=== PATIENT | female | born 1960 | race Hispanic/Latino ===

== ENCOUNTER 2025-02-23 23:54 | Inpatient (IN) | payer MEDICAID ==
--- OUTSIDE RECORDS SUMMARY | 2025-02-23 23:59 | XMS REPORT | Continuity of Care Document ---
Author Name Unknown Address [address] [facility] [place] [address] [facility] Address [address] 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 Name Role Phone Rosa Womack MD Primary Care Physician ENMANUEL PARKS Attending Clinician Unavailable SIMRAN ESPINO Attending Clinician Unavailable LARS, MC Attending Clinician Unavailable CLAUDIA TENA Attending Clinician UnavailGENEVIEVE Humphreys Attending Clinician Unavailable ANNMARIETAAMIR Attending Clinician Unavailable SERA BAEZ Attending Clinician Unavailable LAB47 Attending Clinician Unavailable THEODORE APPLE Attending Clinician Unavailable KAVITHA TAVERAS Attending Clinician Unavailable LAB90 Attending Clinician Unavailable MACKENZIE SARGENT Attending Clinician Unavail able RYAN MENJIVAR Attending Clinician Unava ilable CARLTON ELENA Attending Clinician Unavailable ROSA WOMACK Attending Clinician Unava ilable JONES, SUE S Attending Clinician Unavailab MATEO Zuniga Attending Clinician Unavaila Simran Dang DO Attending Clinician [phone] Enmanuel Parks DO Attending Clinician [phone] TOMOGRAPHY, TA OPTICAL COHERENCE Attending Clini zander Unavailable Violet PATEL, Rosalino Diez Attending Clinician [phone] CONFERENCE, BDC Attending Clinician Unavailable Mateo Linn MD Attending Clinician + [phone] KRUPA INTERIANO Attending Clinician Unavailable Mackenzie Sargent MD Attending Clinician [phone] Vu PATEL, Rosa Berumen Attending Clinician +[phone] Dottie Pizano Attending Clinician Unavail able Dottie Pizano Admitting Clinician Unavail able Payers Payer Name Policy Type Policy Number Effective Date Expirati on Date Source KCA SIGNATURE O 7 [id number] 2024 00:00:00 [employer] MP [facility] [employer] 87 ON 9 [id number] 2023 00:00:00 Problems Condition Name Condition Details Condition Category Status Onset Date Resolution Date Last Treatment Date Treating Clinician Comments Source Sy Dan Disease Active 2023-11 00:00: 00 Nuris Seybold - Externa l Well adult exam Well adult exam Disease Active 2023-11 00:00: 00 Nuris Seybold - Externa l PVD (periphera l vascular disease) PVD (periphera l vascular disease) Disease Active 2023-11 00:00: 00 Nuris Seybold - Externa l 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 ([facility]HS-HCC) 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 ([facility]HS-HCC) Disease Active 12-13 00:00: 00 Nuris Seybold - Externa l Dermatitis Dermatitis Disease Active 12-13 00:00: 00 Nuris Seybold - Externa l Stress Stress Disease Active 2021-11 00:00: 00 Nuris Seybold - Externa l Primary insomnia Primary insomnia Disease Active 2022-1 0-14 00:00: 00 Nuris Jurado - Radhaa l Snoring Snoring Disease Active 9-09 00:00: 00 Nuris Jurado - Externa l Osteoporos is Osteoporos is Disease Active 8-15 00:00: 00 Nuris Jurado - Externa l 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 (multi HCC) 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 (multi HCC) Disease Active 3- 00:00: 00 Nuris Jurado - Radhaa l Rheumatoid arthritis Rheumatoid arthritis Disease Active 1- 00:00: 00 Nuris Jurado No known active problems No known active problems Disease Nuris Jurado Social History Social Habit Start Date Stop Date Quantity Comments Source Gender identity Helene Jurado - External Sexual orientation Chary tapiageoff Jurado - External ASSERTION Not Nuris Jurado - External History of Occupation Nuris Jurado - External Exposure to SARS-CoV-2 (event) Not sure Nuris urena Alcoholic beverage intake 2025-01-01 00:00:00 2025-01-01 00:00:00 Ex-drinker (finding) Nuris Jurado - External History of Social function 2024-09-25 00:00:00 2024-09-25 00:00:00 Nuris Jurado - External Education 2024-09-25 00:00:00 2024-09-25 00:00:00 13 Nuris Jurado - External Tobacco use and exposure 2023-03-20 00:00:00 2023-03-20 00:00:00 Smokeless tobacco non-user Nuris Jurado - External Sex 2021-11-11 09:07:11 2021-11-11 09:07:11 Female (finding) Nuris Jurado - External Sex assigned at 1960 00:00:00 1960 00:00:00 Nuris Jurado - External Smoking Status Start Date Stop Date Source Never smoked tobacco Nuris Jurado - External Medications Ordered Medication Name Filled Medication Name Start Date Stop Date Current Medication? Ordering Clinician Indication Dosage Frequency Signature (SIG) Comments Components Source Zoledronic Acid (RECLAST) 5 MG/100ML infusion 5 mg Zoledronic Acid (RECLAST) 5 MG/100ML infusion 5 mg 01-10 09:12: 13 Yes [id number] 5mg 5 mg, at 300 mL/hr, Administer over 20 Minutes, intravenou s, ONCE, On Mon01/10/25 at 0815, For 1 dose, CORRECTED CALCIUM NEEDS TO BE >= 8 TO BE GIVEN (call MD if sudden drop or Corrected Calcium less than 8) Nuris lao Acetaminoph en (TYLENOL) tablet 650 mg Acetaminoph en (TYLENOL) tablet 650 mg 01-10 09:11: 14 Yes [id number] 650mg 650 mg, oral, ONCE, On Mon01/10/25 at 0815, For 1 dose, Give post-infus ion of Reclast. Maximum dose of acetaminop hen is 4000 mg from all sources in 24 hours. Nuris lao Denosumab (Prolia) 60 MG/ML subcutaneou s Solution Prefilled Syringe 12-16 10:53: 49 Yes [id number] 60mg Inject 1 mL (60 mg total) into the skin every 6 (six) months. Indication s: Osteoporos is Nuris Garciaa l Calcium Carbonate-V it D-Min (CALCIUM 1200 OR) 12-16 10:53: 34 Yes 1{tbl} QD Take 1 tablet by mouth daily Nuris lao Denosumab (Prolia) 60 MG/ML subcutaneou s Solution Prefilled Syringe 2023-11 09:49: 47 Yes [id number] 60mg Inject 1 mL (60 mg total) into the skin every 6 (six) months. Indication s: Osteoporos is Nuris Jurado - Radhaa l Calcium Carbonate-V it D-Min (CALCIUM 1200 OR) 2023-11 09:12: 36 Yes 1{tbl} QD Take 1 tablet by mouth daily Nuris Garciaa l Calcium Carbonate-V it D-Min (CALCIUM 1200 OR) 2023-11 09:41: 03 Yes 1{tbl} QD Take 1 tablet by mouth daily Nuris lao Diclofenac Sodium (Voltaren) 1 % apply externally Gel 2023-11 00:00: 09-25 00:00 :00 No [id number] 4g QD Apply 4 g topically daily Apply 4 grams daily. Nuris lao Denosumab (PROLIA) injection 60 mg 06-24 10:58: 14 No [id number] 60mg 60 mg, subcutaneo us, ONCE, On Mon06/24/24 at 1100, For 1 dose, RN please ensure patient is taking oral calcium and Vitamin D as recommende d by MD. Typically 500-1000 mg calcium and at least 400 IU Vitamin D daily. CORRECTED CALCIUM NEEDS TO BE >= 8 TO BE GIVEN (call MD if sudden drop or Corrected Calcium less than 8) Nuris lao Calcium Carbonate-V it D-Min (CALCIUM 1200 OR) 06-06 14:52: 04 Yes 1{tbl} QD Take 1 tablet by mouth daily Nuris lao Triamcinolo ne Acetonide 0.1 % apply externally Cream 06-06 00:00: 00 09-25 00:00 :00 No [id number] 1{appli cation} Q.5D Apply 1 Applicatio n topically 2 times daily. Nuris lao Cetirizine HCl (ZyrTEC Allergy) 10 MG oral Capsule 06-06 00:00: 00 08-23 00:00 :00 No [id number] 10mg QD Take 1 capsule (10 mg total) by mouth daily as needed (itching). Nuris lao Calcium Carbonate-V it D-Min (CALCIUM 1200 OR) 06-04 13:44: 17 Yes 1{tbl} QD Take 1 tablet by mouth daily Nuris lao Denosumab (PROLIA) injection 60 mg 12-25 13:45: 00 12-25 14:03 :00 No [id number] 60mg 60 mg, subcutaneo us, ONCE, On Mon12/25/23 at 0745, For 1 dose, RN please ensure patient is taking oral calcium and Vitamin D as recommende d by . Typically 500-1000 mg calcium and at least 400 IU Vitamin D daily. CORRECTED CALCIUM NEEDS TO BE >= 8 TO BE GIVEN (call MD if sudden drop or Corrected Calcium less than 8) Nuris lao Calcium Carbonate-V it D-Min (CALCIUM 1200 OR) 11-28 13:21: 56 Yes 1{tbl} Take 1 tablet by mouth daily Nuris lao Eszopiclone 2 MG oral Tablet - 00:00: 00 06-06 00:00 :00 No [id number] 2mg QD Take 1 tablet (2 mg total) by mouth nightly Take immediatel y before bedtime. Nuris lao Calcium Carbonate-V it D-Min (CALCIUM 1200 OR) 05-23 13:58: 03 Yes 1{tbl} Take 1 tablet by mouth daily Nuris lao Eszopiclone 2 MG oral Tablet 05-23 00:00: 00 Yes [id number] 2mg Take 1 tablet (2 mg total) by mouth nightly Take immediatel y before bedtime Nuris lao Denosumab (PROLIA) injection 60 mg 04-12 13:00: 00 04-12 12:50 :00 No [id number] 60mg 60 mg, subcutaneo us, ONCE, On Mon04/12/23 at 0800, For 1 dose
RN please ensure patient is taking oral calcium and Vitamin D as recommende d by MD. Typically 500-1000 mg calcium and 400 IU Vitamin D daily.&nbs p;CORRECTE D CALCIUM NEEDS TO BE >= 8 TO BE GIVEN (call MD if sudden drop or Corrected Calcium less than 8)
Nuris lao Calcium Carbonate-V it D-Min (CALCIUM 1200 OR) 03-20 13:47: 52 Yes 1{tbl} Take 1 tablet by mouth daily Nuris lao Eszopiclone 2 MG oral Tablet 03-20 00:00: 00 Yes [id number] 2mg Take 1 tablet (2 mg total) by mouth nightly Take immediatel y before bedtime Nuris lao Calcium Carbonate-V it D-Min (CALCIUM 1200 OR) 3-14 14:03: 00 Yes 1{tbl} Take 1 tablet by mouth daily Nuris lao Eszopiclone 2 MG oral Tablet -14 00:00: 00 Yes [id number] 2mg Take 1 tablet (2 mg total) by mouth nightly Take immediatel y before bedtime Nuris lao Leflunomide 20 MG oral Tablet -14 00:00: 00 06-06 00:00 :00 No [id number] 20mg QD Take 1 tablet (20 mg total) by mouth daily Nuris lao Calcium Carbonate-V it D-Min (CALCIUM 1200 OR) 12-13 14:28: 26 Yes 1{tbl} Take 1 tablet by mouth daily Nuris lao Hydrocortis one 1 % apply externally Cream 12-13 00:00: 00 Yes [id number] Q.5D Apply 1 applicatio n topically 2 times daily as needed Nuris Man l Hydrocortis one 1 % apply externally Cream 12-13 00:00: 00 Yes [id number] Q.5D Apply 1 applicatio n topically 2 times daily as needed Nuris Garciaa l Hydrocortis one 1 % apply externally Cream 12-13 00:00: 00 06-06 00:00 :00 No [id number] Q.5D Apply 1 applicatio n topically 2 times daily as needed Nuris lao Eszopiclone 2 MG oral Tablet 11-14 00:00: 00 Yes [id number] 2mg Take 1 tablet (2 mg total) by mouth nightly Take immediatel y before bedtime Nuris lao Denosumab (PROLIA) injection 60 mg 2021-11 20:45: 00 10-07 20:33 :00 No [id number] 60mg 60 mg, subcutaneo us, ONCE, On Mon10/07/22 at 1445, For 1 dose
RN please ensure patient is taking oral calcium and Vitamin D as recommende d by MD. Typically 500-1000 mg calcium and 400 IU Vitamin D daily.&nbs p;CORRECTE D CALCIUM NEEDS TO BE >= 8 TO BE GIVEN (call MD if sudden drop or Corrected Calcium less than 8)
Nuris lao Calcium Carbonate-V it D-Min (CALCIUM 1200 OR) 2021-11 14:59: 11 Yes 1{tbl} Take 1 tablet by mouth daily Nuris lao Calcium Carbonate-V it D-Min (CALCIUM 1200 OR) 2021-11 13:48: 16 Yes 1{tbl} Take 1 tablet by mouth daily Nuris lao predniSONE 5 MG oral Tablet 2021-11 00:00: 00 06-06 00:00 :00 No [id number] Take 1 tab PO daily PRN RA flare Nuris lao Eszopiclone 2 MG oral Tablet 2021-11 00:00: 00 Yes [id number] 2mg Take 1 tablet (2 mg total) by mouth nightly Take immediatel y before bedtime Nuris lao predniSONE 5 MG oral Tablet 01-04 00:00: 00 Yes [id number] 5mg Take 1 tablet (5 mg total) by mouth daily Nuris Jurado Leflunomide 20 MG oral Tablet 01-04 00:00: 00 01-17 00:00 :00 No [id number] 20mg Take 1 tablet (20 mg total) by mouth daily Nuris lao Zolpidem Tartrate 10 MG oral Tablet 11-23 00:00: 00 Yes 10mg Take 10 mg by mouth at bedtime as needed Nuris Jurado predniSONE 5 MG oral Tablet 11-15 00:00: 00 Yes 5mg Take 5 mg by mouth every other day Nuris Jurado Leflunomide 20 MG oral Tablet 11-15 00:00: 00 Yes 20mg Take 20 mg by mouth daily Nuris Jurado Immunizations Ordered Immunization Name Filled Immunization Name Date Status Comments Source Influenza Virus Vaccine, No Preserv, age 6 months and up 2022-07-06 00:00:00 Completed Nuris Seybold - External Influenza Virus Vaccine, No Preserv, age 6 months and up 2022-07-06 00:00:00 Completed Nuris Seybold - External Influenza Virus Vaccine, No Preserv, age 6 months and up 2022-07-06 00:00:00 Completed Nuris Seybold - External Influenza Virus Vaccine, No Preserv, age 6 months and up 2022-07-06 00:00:00 Completed Nuris Seybold - External Influenza Virus Vaccine, No Preserv, age 6 months and up 2022-07-06 00:00:00 Completed Nuris Seybold - External Influenza Virus Vaccine, No Preserv, age 6 months and up 2022-07-06 00:00:00 Completed Nuris Seybold - External Influenza Virus Vaccine, No Preserv, age 6 months and up 2022-07-06 00:00:00 Completed Nuris Seybold - External Influenza Virus Vaccine, No Preserv, age 6 months and up Unknown Completed Nuris Seybold - External Influenza Virus Vaccine, No Preserv, age 6 months and up Unknown Completed Nuris Seybold - External Influenza Virus Vaccine, No Preserv, age 6 months and up Unknown Completed Nuris Seybold - External Influenza Virus Vaccine, No Preserv, age 6 months and up Unknown Completed Nuris Seybold - External Influenza Virus Vaccine, No Preserv, age 6 months and up Unknown Completed Nuris Seybold - External Influenza Virus Vaccine, No Preserv, age 6 months and up Unknown Completed Nuris Seybold - External Influenza Virus Vaccine, No Preserv, age 6 months and up Unknown Completed Nuris Seybold - External Influenza Virus Vaccine, No Preserv, age 6 months and up Unknown Completed Nuris Seybold - External Influenza Virus Vaccine, No Preserv, age 6 months and up Unknown Completed Nuris Seybold - External Influenza Virus Vaccine, No Preserv, age 6 months and up Unknown Completed Nuris Seybold - External Influenza Virus Vaccine, No Preserv, age 6 months and up Unknown Completed Nuris Seybold - External Vital Signs Vital Name Observation Time Observation Value Comments S ource Systolic blood pressure 2025-01-10 14:12:00 148 mm[Hg] Nuris Seybo ld - External Diastolic blood pressure 2025-01-10 14:12:00 79 mm[Hg] Nuris Seybo ld - External Heart rate 2025-01-10 14:12:00 73 /min Kelse y Seybold - External Body temperature 2025-01-10 14:12:00 36.33 Sylvia Nuris Seybold - External Respiratory rate 2025-01-10 14:12:00 20 /min Nuris Seybold - External Body height 2025-01-10 14:12:00 157.5 cm Helene ey Seybold - External Body weight 2025-01-10 14:12:00 51.166 kg Helene ey Seybold - External BMI 2025-01-10 14:12:00 20.63 kg/m2 Helene ey Seybold - External Oxygen saturation in Arterial blood by Pulse oximetry 2025-01-10 14:12:00 99 /min Nuris Robisonybo ld - External Systolic blood pressure 2025-01-01 14:27:00 146 mm[Hg] Nuris Seybo ld - External Diastolic blood pressure 2025-01-01 14:27:00 76 mm[Hg] Nuris Seybo ld - External Heart rate 2025-01-01 14:27:00 86 /min Akilse y Seybold - External Respiratory rate 2025-01-01 14:27:00 18 /min Nuris Seybold - External Body height 2025-01-01 14:27:00 157.5 cm Helene ey Seybold - External Body weight 2025-01-01 14:27:00 53.071 kg Helene ey Seybold - External BMI 2025-01-01 14:27:00 21.40 kg/m2 Helene ey Seybold - External Systolic blood pressure 2024-12-16 16:52:00 132 mm[Hg] Nuris Seybo ld - External Diastolic blood pressure 2024-12-16 16:52:00 82 mm[Hg] Nuris Seybo ld - External Heart rate 2024-12-16 16:52:00 73 /min Akilse y Seybold - External Body temperature 2024-12-16 16:52:00 36.61 Sylvia Nuris Seybold - External Respiratory rate 2024-12-16 16:52:00 16 /min Nuris Seybold - External Body height 2024-12-16 16:52:00 162.6 cm Helene ey Seybold - External Body weight 2024-12-16 16:52:00 52.164 kg Helene ey Seybold - External BMI 2024-12-16 16:52:00 19.74 kg/m2 Helene ey Seybold - External Systolic blood pressure 2024-09-25 15:07:00 110 mm[Hg] Nuris Seybo ld - External Diastolic blood pressure 2024-09-25 15:07:00 64 mm[Hg] Nuris Seybo ld - External Heart rate 2024-09-25 15:07:00 58 /min Kelse y Seybold - External Body temperature 2024-09-25 15:07:00 36.17 Sylvia Nuris Seybold - External Respiratory rate 2024-09-25 15:07:00 18 /min Nuris Seybold - External Body height 2024-09-25 15:07:00 162.6 cm Helene ey Seybold - External Body weight 2024-09-25 15:07:00 52.164 kg Helene ey Seybold - External BMI 2024-09-25 15:07:00 19.74 kg/m2 Helene ey Seybold - External Oxygen saturation in Arterial blood by Pulse oximetry 2024-09-25 15:07:00 90 /min Nuris Seybo ld - External Body height 2024-08-23 14:41:00 161 cm Helene ey Seybold - External Body weight 2024-08-23 14:41:00 52.617 kg Helene ey Seybold - External BMI 2024-08-23 14:41:00 20.30 kg/m2 Helene ey Seybold - External Systolic blood pressure 2024-06-24 15:50:00 136 mm[Hg] Nuris Seybo ld - External Diastolic blood pressure 2024-06-24 15:50:00 79 mm[Hg] Nuris Seybo ld - External Heart rate 2024-06-24 15:50:00 71 /min Kelse y Seybold - External Body temperature 2024-06-24 15:50:00 36.28 Sylvia Nuris Seybold - External Respiratory rate 2024-06-24 15:50:00 18 /min Nuris Seybold - External Body height 2024-06-24 15:50:00 162.6 cm Helene ey Seybold - External Body weight 2024-06-24 15:50:00 51.347 kg Helene ey Seybold - External BMI 2024-06-24 15:50:00 19.43 kg/m2 Helene ey Seybold - External Oxygen saturation in Arterial blood by Pulse oximetry 2024-06-24 15:50:00 99 /min Nuris Seybo ld - External Systolic blood pressure 2024-06-06 19:49:00 122 mm[Hg] Nuris Seybo ld - External Diastolic blood pressure 2024-06-06 19:49:00 70 mm[Hg] Nuris Seybo ld - External Heart rate 2024-06-06 19:49:00 76 /min Kelse y Seybold - External Body temperature 2024-06-06 19:49:00 36.89 Sylvia Nuris Seybold - External Respiratory rate 2024-06-06 19:49:00 20 /min Nuris Seybold - External Body height 2024-06-06 19:49:00 162.6 cm Helene ey Seybold - External Body weight 2024-06-06 19:49:00 52.617 kg Helene ey Seybold - External BMI 2024-06-06 19:49:00 19.91 kg/m2 Helene ey Seybold - External Oxygen saturation in Arterial blood by Pulse oximetry 2024-06-06 19:49:00 98 /min Nuris Seybo ld - External Systolic blood pressure 2024-06-04 18:42:00 124 mm[Hg] Nuris Seybo ld - External Diastolic blood pressure 2024-06-04 18:42:00 72 mm[Hg] Nuris Seybo ld - External Heart rate 2024-06-04 18:42:00 75 /min Kelse y Seybold - External Respiratory rate 2024-06-04 18:42:00 16 /min Nuris Seybold - External Body height 2024-06-04 18:42:00 162.6 cm Helene ey Seybold - External Body weight 2024-06-04 18:42:00 52.617 kg Helene ey Seybold - External BMI 2024-06-04 18:42:00 19.91 kg/m2 Helene ey Seybold - External Systolic blood pressure 2023-12-25 13:48:00 131 mm[Hg] Nuris Seybo ld - External Diastolic blood pressure 2023-12-25 13:48:00 78 mm[Hg] Nuris Seybo ld - External Heart rate 2023-12-25 13:48:00 67 /min Kelse y Seybold - External Body temperature 2023-12-25 13:48:00 36.44 Sylvia Nuris Seybold - External Respiratory rate 2023-12-25 13:48:00 17 /min Nuris Seybold - External Body height 2023-12-25 13:48:00 162.6 cm Helene ey Seybold - External Body weight 2023-12-25 13:48:00 53.887 kg Helene ey Seybold - External BMI 2023-12-25 13:48:00 20.39 kg/m2 Helene ey Seybold - External Oxygen saturation in Arterial blood by Pulse oximetry 2023-12-25 13:48:00 99 /min Nuris Seybo ld - External Systolic blood pressure 2023-11-28 19:19:00 128 mm[Hg] Nuris Seybo ld - External Diastolic blood pressure 2023-11-28 19:19:00 72 mm[Hg] Nuris Seybo ld - External Heart rate 2023-11-28 19:19:00 73 /min Kelse y Seybold - External Respiratory rate 2023-11-28 19:19:00 16 /min Nuris Seybold - External Body height 2023-11-28 19:19:00 162.6 cm Helene ey Seybold - External Body weight 2023-11-28 19:19:00 53.524 kg Helnee ey Seybold - External BMI 2023-11-28 19:19:00 20.25 kg/m2 Helene ey Seybold - External Systolic blood pressure 2023-05-23 18:56:00 120 mm[Hg] Nuris Seybo ld - External Diastolic blood pressure 2023-05-23 18:56:00 76 mm[Hg] Nuris Seybo ld - External Heart rate 2023-05-23 18:56:00 76 /min Kelse y Seybold - External Respiratory rate 2023-05-23 18:56:00 16 /min Nuris Seybold - External Body height 2023-05-23 18:56:00 156.2 cm Helene ey Seybold - External Body weight 2023-05-23 18:56:00 53.071 kg Helene ey Seybold - External BMI 2023-05-23 18:56:00 21.75 kg/m2 Helene ey Seybold - External Systolic blood pressure 2023-04-12 12:39:00 144 mm[Hg] Nuris Seybo ld - External Diastolic blood pressure 2023-04-12 12:39:00 84 mm[Hg] Nuris Seybo ld - External Heart rate 2023-04-12 12:39:00 72 /min Kelse y Seybold - External Body temperature 2023-04-12 12:39:00 35.94 Sylvia Nuris Seybold - External Respiratory rate 2023-04-12 12:39:00 16 /min Nuris Seybold - External Body height 2023-04-12 12:39:00 157.5 cm Helene ey Seybold - External Body weight 2023-04-12 12:39:00 52.753 kg Helene ey Seybold - External BMI 2023-04-12 12:39:00 21.27 kg/m2 Helene ey Seybold - External Oxygen saturation in Arterial blood by Pulse oximetry 2023-04-12 12:39:00 99 /min Nuris Seybo ld - External Systolic blood pressure 2023-03-20 18:43:00 118 mm[Hg] Nuris Seybo ld - External Diastolic blood pressure 2023-03-20 18:43:00 70 mm[Hg] Nuris Seybo ld - External Heart rate 2023-03-20 18:43:00 72 /min Kelse y Seybold - External Body temperature 2023-03-20 18:43:00 36.61 Sylvia Nuris Seybold - External Respiratory rate 2023-03-20 18:43:00 16 /min Nuris Seybold - External Body height 2023-03-20 18:43:00 158.8 cm Helene ey Seybold - External Body weight 2023-03-20 18:43:00 53.071 kg Helene ey Seybold - External BMI 2023-03-20 18:43:00 21.06 kg/m2 Helene ey Seybold - External Systolic blood pressure 2023-01-17 19:00:00 144 mm[Hg] Nuris Seybo ld - External Diastolic blood pressure 2023-01-17 19:00:00 89 mm[Hg] Nuris Seybo ld - External Heart rate 2023-01-17 19:00:00 71 /min Kelse y Seybold - External Body temperature 2023-01-17 19:00:00 36.61 Sylvia Nuris Seybold - External Respiratory rate 2023-01-17 19:00:00 16 /min Nuris Seybold - External Body height 2023-01-17 19:00:00 162.6 cm Helene ey Seybold - External Body weight 2023-01-17 19:00:00 51.71 kg Helene ey Seybold - External BMI 2023-01-17 19:00:00 19.57 kg/m2 Helene ey Seybold - External Systolic blood pressure 2022-12-13 20:27:00 134 mm[Hg] Nuris Seybo ld - External Diastolic blood pressure 2022-12-13 20:27:00 86 mm[Hg] Nuris Seybo ld - External Heart rate 2022-12-13 20:27:00 86 /min Kelse y Seybold - External Body temperature 2022-12-13 20:27:00 36.39 Sylvia Nuris Seybold - External Respiratory rate 2022-12-13 20:27:00 20 /min Nuris Seybold - External Body height 2022-12-13 20:27:00 162.6 cm Helene ey Seybold - External Body weight 2022-12-13 20:27:00 54.159 kg Helene ey Seybold - External BMI 2022-12-13 20:27:00 20.49 kg/m2 Helene ey Seybold - External Oxygen saturation in Arterial blood by Pulse oximetry 2022-12-13 20:27:00 100 /min Nuris Seybo ld - External Systolic blood pressure 2022-10-07 20:22:00 155 mm[Hg] Nuris Seybo ld - External Diastolic blood pressure 2022-10-07 20:22:00 75 mm[Hg] Nuris Seybo ld - External Heart rate 2022-10-07 20:22:00 69 /min Kelse y Seybold - External Body temperature 2022-10-07 20:22:00 36.44 Sylvia Nuris Seybold - External Respiratory rate 2022-10-07 20:22:00 17 /min Nuris Seybold - External Body height 2022-10-07 20:22:00 154.9 cm Helene ey Seybold - External Body weight 2022-10-07 20:22:00 52.889 kg Helene ey Seybold - External BMI 2022-10-07 20:22:00 22.03 kg/m2 Helene ey Seybold - External Oxygen saturation in Arterial blood by Pulse oximetry 2022-10-07 20:22:00 99 /min Nuris Seybo ld - External Systolic blood pressure 2022-09-13 19:48:00 134 mm[Hg] Nuris Seybo ld - External Diastolic blood pressure 2022-09-13 19:48:00 88 mm[Hg] Nuris Seybo ld - External Heart rate 2022-09-13 19:48:00 77 /min Akilse y Seybold - External Body temperature 2022-09-13 19:48:00 35.89 Sylvia Nuris Seybold - External Respiratory rate 2022-09-13 19:48:00 16 /min Nuris Seybold - External Body height 2022-09-13 19:48:00 157.5 cm Helene ey Seybold - External Body weight 2022-09-13 19:48:00 54.885 kg Helene ey Seybold - External BMI 2022-09-13 19:48:00 22.13 kg/m2 Helene ey Seybold - External Oxygen saturation in Arterial blood by Pulse oximetry 2022-09-13 19:48:00 97 /min Nuris Seybo ld - External Systolic blood pressure 2022-01-04 20:17:00 153 mm[Hg] Nuris Seybo ld Diastolic blood pressure 2022-01-04 20:17:00 81 mm[Hg] Nuris Seybo ld Heart rate 2022-01-04 20:17:00 79 /min Kelse y Seybold Respiratory rate 2022-01-04 20:17:00 16 /min Nuris Seybold Body height 2022-01-04 20:17:00 160 cm Helene ey Seybold Body weight 2022-01-04 20:17:00 54.432 kg Helene ey Seybold BMI 2022-01-04 20:17:00 21.26 kg/m2 Helene ey Seybold Systolic blood pressure 2021-12-03 15:03:00 118 mm[Hg] Nuris Seybo ld Diastolic blood pressure 2021-12-03 15:03:00 62 mm[Hg] Nuris Seybo ld Heart rate 2021-12-03 15:03:00 81 /min Kelse y Seybold Body temperature 2021-12-03 15:03:00 36.17 Sylvia Nuris Seybold Respiratory rate 2021-12-03 15:03:00 14 /min Nuris Seybold Body height 2021-12-03 15:03:00 157.5 cm Helene ey Seybold Body weight 2021-12-03 15:03:00 52.164 kg Helene ey Seybold BMI 2021-12-03 15:03:00 21.03 kg/m2 Helene ey Seybold Procedures Procedure Date / Time Performed Performing Clinicia n Source [facility] 2024-09-25 10:11:05 Simran Espino - External Encounters Start Date/Time End Date/Time Encounter Type Admission Type Attending [facility] Care Department Encounter ID Source 2025-12-15 09:00:00 2025-12-15 09:00:00 Outpatient ENMANUEL PARKS [id number] [facility] 2025-03-27 08:00:00 2025-03-27 08:00:00 Outpatient NURIS LOZANO [id number] [facility] 2025-03-17 08:00:00 2025-03-17 08:00:00 Outpatient NURIS LOZANO [id number] [facility] 2025-03-12 14:45:00 2025-03-12 14:45:00 Outpatient SIMRAN ESPINO [id number] [facility] 2025-03-04 08:30:00 2025-03-04 08:30:00 Outpatient NURIS LOZANO [id number] [facility] 2025-02-21 09:30:00 2025-02-21 09:30:00 Outpatient NURIS LOZANO [id number] [facility] 2025-02-21 00:00:00 2025-02-21 00:00:00 Outpatient SIMRAN ESPINO [facility]IS LO[facility] [id number] [facility] 2025-02-13 07:40:00 2025-02-13 07:40:00 Outpatient NURIS LOZANO [id number] Nuris larissa 2025-02-10 09:20:00 2025-02-10 09:20:00 Outpatient ENMANUEL PARKS [id number] [facility] 2025-02-07 00:00:00 2025-02-07 00:00:00 Outpatient MELINAJACKIESIMRAN Martin [facility]IS [facility] [id number] [facility] 2025-01-24 07:30:00 2025-01-24 07:30:00 Outpatient NURIS LOZANO [id number] [facility] 2025-01-10 08:00:00 2025-01-10 08:00:00 Outpatient INFUSION, AAMIR LOZANO [id number] [facility] 2025-01-07 10:20:00 2025-01-07 10:20:00 Outpatient NURIS LOZANO [id number] [facility] 2025-01-03 00:00:00 2025-01-03 00:00:00 Outpatient [facility]UDIA [facility] [id number] [facility] 2025-01-02 07:40:00 2025-01-02 07:40:00 Outpatient NURIS LOZANO [id number] [facility] 2025-01-01 09:15:00 2025-01-01 09:15:00 Outpatient GENEVIEVE MENDOSA [id number] [facility] 2024-12-27 10:15:00 2024-12-27 10:15:00 Outpatient IVT, A[facility]IR [facility] [id number] [facility] 2024-12-27 00:00:00 2024-12-27 00:00:00 Outpatient KASEY, ENMANUEL NURIS LOZANO [id number] Nuris Seybold 2024-12-24 00:00:00 2024-12-24 00:00:00 Outpatient KASEY, ENMANUEL LOZANO NURIS [id number] N[facility]is Seybold 2024-12-24 00:00:00 2024-12-24 00:00:00 Outpatient KASEY, ENMANUEL NURIS NURIS [id number] Nuris Seybold 2024-12-24 00:00:00 2024-12-24 00:00:00 Outpatient BAEZSERA BUTTS NURIS LOZANO [id number] Nuris Seybold 2024-12-19 00:00:00 2024-12-19 00:00:00 Outpatient KASEY, ENMANUEL NURIS LOZANO [id number] Nuris Seybold 2024-12-18 09:20:00 2024-12-18 09:20:00 Outpatient NURIS LOZANO [id number] Nuris Seybold 2024-12-17 00:00:00 2024-12-17 00:00:00 Outpatient PREZAS, SIMRAN NURIS LOZANO [id number] N[facility] Seybold 2024-12-16 11:40:00 2024-12-16 11:40:00 Outpatient KASEY, ENMANUEL NURIS LOZANO [id number] Nuris Seybold 2024-12-16 11:10:00 2024-12-16 11:10:00 Outpatient EVELYNKarl LOZANO [id number] [facility] Seybold 2024-11-14 08:20:00 2024-11-14 08:20:00 Outpatient THEODORE APPLE [id number] [facility] Seybold 2024-10-25 08:10:00 2024-10-25 08:10:00 Outpatient KAVITHA TAVERAS [id number] [facility] Seybold 2024-10-25 00:00:00 2024-10-25 00:00:00 Outpatient PREZAS, SIMRAN LOZANO [id number] N[facility] Seybold 2024-09-27 00:00:00 2024-09-27 00:00:00 Outpatient PREZAS, SIMRAN LOZANO [id number] [facility] 2024-09-26 00:00:00 2024-09-26 00:00:00 Outpatient SIMRAN ESPINO NURIS [id number] [facility] 2024-09-25 10:15:00 2024-09-25 10:15:00 Outpatient LAB90 NURIS LOZANO [id number] [facility] 2024-09-25 09:15:00 2024-09-25 09:15:00 Outpatient SIMRAN ESPINO NURIS [id number] [facility] 2024-09-25 00:00:00 2024-09-25 00:00:00 Outpatient NURIS LOZANO [id number] [facility] yblarissa 2024-08-23 09:20:00 2024-08-23 09:20:00 Outpatient SIVAN TAVERASIE NURIS LOZANO [id number] [facility] 2024-08-23 08:55:00 2024-08-23 08:55:00 Outpatient NURIS LOZANO [id number] N[facility] Seyblarissa 2024-08-22 00:00:00 2024-08-22 00:00:00 Outpatient KAVITHA TAVERAS [id number] [facility] Seyblarissa 2024-06-24 11:00:00 2024-06-24 11:00:00 Outpatient IVT, AAMIR LOZANO [id number] [facility] ybl[facility]issa 2024-06-20 00:00:00 2024-06-20 00:00:00 Outpatient ENMANUEL PARKS [id number] [facility] 2024-06-14 00:00:00 2024-06-14 00:00:00 Outpatient CLAUDIA TENA [id number] [facility] Seyblarissa 2024-06-06 14:45:00 2024-06-06 14:45:00 Outpatient SIMRAN ESPINO NURIS LOZANO [id number] N[facility] Seybold 2024-06-04 14:30:00 2024-06-04 14:30:00 Outpatient LAB47 NURIS LOZANO [id number] N[facility]is Seybold 2024-06-04 14:00:00 2024-06-04 14:00:00 Outpatient MACKENZIE SARGENT NURIS LOZANO [id number] [facility] 2023-12-25 08:15:00 2023-12-25 08:15:00 Outpatient IVT, AAMIR NURIS LOZANO [id number] [facility] 2023-12-25 08:15:00 2023-12-25 08:15:00 Outpatient IVT, AAMIR LOZANO [id number] [facility] 2023-12-22 15:30:00 2023-12-22 15:30:00 Outpatient IVT, AAMIR LOZANO [id number] [facility] ybl[facility] 2023-12-15 00:00:00 2023-12-15 00:00:00 Outpatient DARINEL CLAUDIA NURIS LOZANO [id number] [facility] 2023-12-04 00:00:00 2023-12-04 00:00:00 Outpatient ENMANUEL PARKS [facility] [id number] [facility]04 00:00:00 2023-12-04 00:00:00 Outpatient ENMANUEL PARKS NURIS LOZANO [id number] [facility] 2023-11-28 14:00:00 2023-11-28 14:00:00 Outpatient MACKENZIE SARGENT NURIS LOZANO [id number] [facility] 2023-11-28 13:35:00 2023-11-28 13:35:00 Outpatient [facility] NURIS LOZANO [id number] [facility] 2023-08-04 00:00:00 2023-08-04 00:00:00 Outpatient SIMRAN ESPINO [id number] [facility] 2023-07-07 00:00:00 2023-07-07 00:00:00 Outpatient RYAN MENJIVAR [id number] [facility] 2023-07-04 14:00:00 2023-07-04 14:00:00 Outpatient NURIS LOZANO [id number] [facility] Seybl[facility] 2023-06-12 14:00:00 2023-06-12 14:00:00 Outpatient SIMRAN ESPINO NURIS LOZANO [id number] [facility] 2023-05-23 14:30:00 2023-05-23 14:30:00 Outpatient MACKENZIE SARGENT NURIS LOZANO [id number] [facility] 2023-05-23 14:10:00 2023-05-23 14:10:00 Outpatient LAB NURIS LOZANO [id number] [facility] 2023-05-23 00:00:00 2023-05-23 00:00:00 Outpatient SIMRAN ESPINO NURIS LOZANO [id number] [facility] 2023-04-20 00:00:00 2023-04-20 00:00:00 Outpatient SIMRAN ESPINO NURIS LOZANO [id number] [facility] 2023-04-12 07:45:00 2023-04-12 07:45:00 Outpatient INFUSION, AAMIR LOZANO [id number] [facility] 2023-04-12 00:00:00 2023-04-12 00:00:00 Outpatient ENMANUEL PARKS [id number] [facility] 2023-04-10 00:00:00 2023-04-10 00:00:00 Outpatient CLAUDIA TENA [id number] [facility] 2023-04-08 08:40:00 2023-04-08 08:40:00 Outpatient LAB NURIS LOZANO [id number] [facility] 2023-04-07 14:00:00 2023-04-07 14:00:00 Outpatient INFUSION, AAMIR LOZANO [id number] [facility] 2023-04-07 00:00:00 2023-04-07 00:00:00 Outpatient KAYLEIGH SARGENTKWOOD NURIS LOZANO [id number] [facility] 2023-04-06 00:00:00 2023-04-06 00:00:00 Outpatient ENMANUEL PARKS [id number] [facility] 2023-03-30 00:00:00 2023-03-30 00:00:00 Outpatient CLAUDIA TENA [id number] [facility] 2023-03-29 00:00:00 2023-03-29 00:00:00 Outpatient CLAUDIA TENA NURIS LOZANO [id number] [facility] 2023-03-20 15:00:00 2023-03-20 15:00:00 Outpatient LAB47 NURIS LOZANO [id number] [facility] 2023-03-20 14:30:00 2023-03-20 14:30:00 Outpatient ENMANUEL PARKS NURIS LOZANO [id number] [facility] 2023-03-20 00:00:00 2023-03-20 00:00:00 Outpatient PREZAS, SIMRAN NURIS LOZANO [id number] [facility] 2023-02-16 00:00:00 2023-02-16 00:00:00 Outpatient PREZAMario, SIMRANRAS LOZANO [id number] [facility] 2023-01-17 15:00:00 2023-01-17 15:00:00 Outpatient LAB47 NURIS LOZANO [id number] [facility] 2023-01-17 14:30:00 2023-01-17 14:30:00 Outpatient SARGENTMACKENZIE JIMÉNEZ NURIS LOZANO [id number] [facility] 2023-01-17 00:00:00 2023-01-17 00:00:00 Outpatient PREPIERRE, SIMRAN NURIS LOZANO [id number] [facility] 2022-12-27 08:00:00 2022-12-27 08:00:00 Outpatient LAB90 NURIS LOZANO [id number] [facility] 2022-12-16 00:00:00 2022-12-16 00:00:00 Outpatient ENMANUEL PARKS NURSI LOZANO [id number] [facility] Seybold 2022-12-13 14:30:00 2022-12-13 14:30:00 Outpatient PREZASIMRAN Martin NURIS LOZANO [id number] [facility] 2022-12-02 00:00:00 2022-12-02 00:00:00 Outpatient PREZASSIMRAN [id number] [facility] Seybold 2022-11-14 00:00:00 2022-11-14 00:00:00 Outpatient PREZAS, SIMRAN LOZANO NURIS [id number] [facility] 2022-10-07 14:30:00 2022-10-07 14:30:00 Outpatient IVTAAMIR NURIS LOZANO [id number] [facility] 2022-09-28 00:00:00 2022-09-28 00:00:00 Outpatient CARLTON ELENA NURIS LOZANO [id number] [facility] 2022-09-13 14:45:00 2022-09-13 14:45:00 Outpatient MACKENZIE SARGENT NURIS LOZANO [id number] [facility] 2022-09-13 14:10:00 2022-09-13 14:10:00 Outpatient ARIA NURIS LOZANO [id number] [facility] 2022-09-06 15:45:00 2022-09-06 15:45:00 Outpatient MACKENZIE SARGENT NURIS LOZANO [id number] [facility] 2022-08-19 13:45:00 2022-08-19 13:45:00 Outpatient PREZASSIMRAN NURIS LOZANO [id number] [facility] 2022-08-12 11:15:00 2022-08-12 11:15:00 Outpatient PREZAS, SIMRAN NURIS LOZANO [id number] [facility] 2022-08-10 00:00:00 2022-08-10 00:00:00 Outpatient PREZAS, SIMRAN [facility]URIS LOZAN[facility] [id number] [facility] 2022-08-09 00:00:00 2022-08-09 00:00:00 Outpatient ROSA WOMACK [id number] [facility] 2022-08-03 00:00:00 2022-08-03 00:00:00 Outpatient PREZAS, SIMRAN NURIS LOZANO [id number] [facility] Seybold 2022-07-25 08:20:00 2022-07-25 08:20:00 Outpatient SUE JONES [id number] [facility] 2022-07-19 00:00:00 2022-07-19 00:00:00 Outpatient SIMRAN ESPINO NURIS [id number] [facility] 2022-07-18 09:00:00 2022-07-18 09:00:00 Office Visit MATEO [facility] 1.2.840.114 350.1.13.13 [id number] [id number] [facility] 2022-07-15 11:30:00 2022-07-15 11:45:00 Office Visit Simran Espino 1.2.840.114 350.1.13.13 [id number] [id number] [facility] 2022-07-06 00:00:00 2022-07-06 00:00:00 [id number] [facility]22-07-05 00:00:00 2022-07-05 00:00:00 Outpatient ROSA WOMACK [id number] [facility] 2022-07-04 00:00:00 2022-07-04 00:00:00 Outpatient [facility] [id number] [facility] 2022-07-04 00:00:00 2022-07-04 00:00:00 Outpatient ROSA WOMACK [id number] [facility] 2022-06-29 00:00:00 2022-06-29 00:00:00 Outpatient ENMANUEL PARKS [id number] [facility] 2022-06-27 00:00:00 2022-06-27 00:00:00 Outpatient ROSA WOMACK [id number] [facility] 2022-06-27 00:00:00 2022-06-27 00:00:00 Outpatient ENMANUEL PARKS [id number] [facility] 2022-06-27 00:00:00 2022-06-27 00:00:00 Outpatient ROSA WOMACK [id number] [facility] 2022-06-26 00:00:00 2022-06-26 00:00:00 Outpatient ENMANUEL PARKS NURIS [id number] [facility] 2022-06-22 14:00:00 2022-06-22 14:00:00 Outpatient NURIS HOLLINGSWORTHSEY [id number] [facility] 2022-06-20 15:15:00 2022-06-20 15:15:00 Outpatient LAB NURIS LOZANO [id number] [facility] 2022-06-20 14:30:00 2022-06-20 15:00:00 Office Visit Enmanuel Parks 1.2.840.114 350.1.13.13 [id number] [id number] [facility] 2022-06-16 15:00:00 2022-06-16 15:00:00 Outpatient NURIS LOZANO [id number] [facility] 2022-06-16 14:20:00 2022-06-16 14:20:00 Outpatient NURIS LOZANO [id number] [facility] 2022-06-09 14:30:00 2022-06-09 14:30:00 Outpatient NURIS NURIS [id number] [facility] 2022-06-06 15:00:00 2022-06-06 15:00:00 Outpatient NAE JOVANNA NURIS LOZANO [id number] [facility] 2022-06-06 14:30:00 2022-06-06 14:45:00 Office Visit Rosalino Lazo .2.840.114 350.1.13.13 [id number] [id number] [facility] yblar[facility] 2022-06-03 00:00:00 2022-06-03 00:00:00 Outpatient ROSA WOMACK [id number] [facility] 2022-06-03 00:00:00 2022-06-03 00:00:00 Outpatient [facility] NURIS LOZANO [id number] [facility] Sey[facility] 2022-06-02 13:30:00 2022-06-02 13:30:00 Outpatient NURIS NURIS [id number] [facility] 2022-05-31 10:15:00 2022-05-31 10:15:00 Outpatient NURIS NURIS [id number] [facility] 2022-05-31 00:00:00 2022-05-31 00:00:00 Outpatient ROSA WOMACK NURIS LOZANO [id number] [facility] 2022-05-27 10:00:00 2022-05-27 11:00:00 Office Visit Mateo Linn [facility] .2.840.114 350.1.13.13 1.2.7.2.686 [id number] [facility] 2022-05-27 00:00:00 2022-05-27 00:00:00 Outpatient MATEO LINN NURIS LOZANO [id number] [facility] 2022-05-26 15:20:00 2022-05-26 15:20:00 Outpatient KRUPA INTERIANO NRUIS LOZANO [id number] [facility] 2022-05-26 00:00:00 2022-05-26 00:00:00 Outpatient ROSA WOMACK NURIS LOZANO [id number] [facility] 2022-05-25 11:30:00 2022-05-25 11:30:00 Outpatient NURIS LOZANO [id number] [facility] 2022-05-24 00:00:00 2022-05-24 00:00:00 Outpatient ROSA WOMACK NURIS LOZANO [id number] [facility] 2022-05-23 08:00:00 2022-05-23 08:00:00 Office [facility] .2.840.114 350.1.13.13 1.2.7.2.686 [id number] [facility] 2022-05-20 15:20:00 2022-05-20 15:20:00 Outpatient NURIS LOZANO [id number] [facility] 2022-05-12 15:40:00 2022-05-12 15:40:00 Outpatient NURIS LOZANO [id number] [facility] 2022-05-03 14:45:00 2022-05-03 15:00:00 Office Visit Mackenzie Sargent 1.2.840.114 350.1.13.13 1.2.7.2.686 [id number] [facility] 2022-04-15 00:00:00 2022-04-15 00:00:00 Outpatient VUROSA KELLER NURIS LOZANO [id number] [facility] 2022-04-12 14:15:00 2022-04-12 14:15:00 Outpatient MACKENZIE SARGENT NURIS LOZANO [id number] [facility] 2022-01-04 14:30:00 2022-01-04 15:00:00 Office Visit Mackenzie Sargent 1.2.840.114 350.1.13.13 1.2.7.2.686 [id number] [facility] 2021-12-03 15:00:00 2021-12-03 15:00:00 Outpatient MARY WOMACKYONNY LOZANO [id number] [facility] 2021-12-03 09:00:00 2021-12-03 10:00:00 Office Visit Rosa [facility] 1.2.840.114 350.1.13.13 1.2.7.2.686 [id number] Nurisnani Jurado 2021-11-24 00:00:00 2021-11-24 00:00:00 Outpatient ROSA WOMACK [id number] [facility] 2021-06-04 12:00:00 2021-06-04 12:00:00 Outpatient Dottie Murray [facility] [id number] Results Test Description Test Time Test Comments Results Result Co mments Source Nuris Jurado - External Notes Date/Time Note Provider Source 2025-01-01 08:28:17 Chief Complaint Patient presents with Well Woman Exam Abraham Powers is here today for her Well Woman Exam. No LMP recorded. Patient is postmenopausal. The patient's last pap smear was Pending and her last mammogram was 01/07/2025. Lucinda Morales MA [facility] 2024-12-16 10:53:39 Chief Complaint Patient presents with Follow-up Clarice Mccrary MA [facility] 2024-06-04 13:44:24 Chief Complaint Patient presents with Follow-up 6 month. Lulu Grace LVN [facility] 2023-11-28 13:22:08 Chief Complaint Patient presents with Follow-up 6 month. Lulu Grace LVN [facility] 2023-05-23 13:58:10 Formatting of this n ote is different from the original. Chief Complaint Patient presents with Follow-up 4 month Lulu Grace LVN [facility]
[2025-02-24] MEDS ORDERED: METOCLOPRAMIDE 10 MG/2mL INJ ONE ×2 (00:40→06:20)
[2025-02-24] MEDS ORDERED: FAMOTIDINE 20 MG/2 ML VIAL IV ONE (00:40)
[2025-02-24] MEDS ORDERED: MORPHINE 2 MG/ML SYR ONE (00:40)
[2025-02-24 00:59] LABS: Specific Gravity 1.021 (1.005-1.030); Sqamous Epithelial None Seen /HPF (None Seen); Urine Bacteria <20 /HPF (<20); Urine Bilirubin NEGATIVE (Negative); Urine Blood 2+ (Negative); Urine Clarity Extremely Turbid (Clear); Urine Color Yellow (Yellow); Urine Crystals Unidentified Few /HPF (None Seen); Urine Glucose NEGATIVE (Negative); Urine Ketones NEGATIVE (Negative); Urine Micro Reflex YN NO BILL MICROSCOPIC; Urine Mucus 2+ /HPF (None Seen); Urine Nitrite NEGATIVE (Negative); Urine Protein 1+ (Negative); Urine RBC >50 /HPF (None Seen); Urine Urobilinogen Normal (Normal); Urine WBC None Seen /HPF (<5)
[2025-02-24 01:05] LABS: Absolute Lymphocytes (CBC) 1.2 K/uL (0.7-4.9); Absolute Monocytes 0.5 K/uL (0.1-1.3); Basophils % 0.2 % (0-1.3); Eosinophils % 0.2 % (0-4.4); Hematocrit 39.1 % (36.0-45.0); MCHC 33.2 g/dL (32.0-36.0); MCV 84.4 fL (80-100); MPV 8.2 fL (7.6-11.3); Monocytes % 6.1 % (3.3-12.3); Neutrophils % 78.5 % (41.7-73.7); Platelets 441 thou/uL (152-406); RBC Red Blood Cell Count 4.64 M/uL (3.86-4.86)
[2025-02-24 01:06] LABS: Protime INR 1.06
[2025-02-24 01:17] LABS: ALT/SGPT 41 U/L (13-56); AST/SGOT 40 U/L (15-37); Albumin 3.3 g/dL (3.4-5.0); Albumin/Globulin Ratio 0.7 (1.1-1.8); Alkaline Phosphatase 133 U/L (45-117); Anion Gap 9.7 mEq/L (5.0-15.0); BUN Blood Urea Nitrogen 18 mg/dL (7-18); Bicarbonate 26 mEq/L (21-32); Bilirubin Total 0.5 mg/dL (0.2-1.0); Globulin 4.6 g/dL (2.3-3.5); Glomerular Filtration Rate 98 ml/min (=/>90); Glucose Level 165 mg/dL (74-106); Magnesium 2.1 mg/dL (1.6-2.4); Potassium 4.7 mEq/L (3.5-5.1); Protein, Total 7.9 g/dL (6.4-8.2); Sodium Level 137 mEq/L (136-145); Troponin High Sensitivity 37.2 pg/mL (<58.9)
[2025-02-24 01:18] LABS: Bilirubin Direct < 0.2 mg/dL (0-0.2); Bilirubin Indirect, Calculated 0.3 mg/dL (0.2-0.8)
[2025-02-24] MEDS ORDERED: NA CHLORIDE 0.9% 500 ML ONE (01:42)
[2025-02-24] MEDS ORDERED: ONDANSETRON 4 MG/2 ML VIAL ONE ×3 (02:11→08:24)
[2025-02-24 03:01] LABS: Lipase 29 U/L (13-75)
[2025-02-24] MEDS ORDERED: PROMETHAZINE INJ 25 MG/ML AMP ONE (04:01)
--- NOTE | 2025-02-24 05:39 | RAD REPORT ---
EXAM DESCRIPTION: Angio Aorta For Dissection CLINICAL HISTORY: epigastric/chest/back pain COMPARISON: None TECHNIQUE: CT angiogram of the chest, abdomen and pelvis were obtained after the administration of intravenous contrast followed by reconstruction images. Sagittal and coronal maximum intensity projection images are generated for review. The exam was performed according to our departmental dose -optimization program, which includes automated exposure control, adjustment of the mA and/or kV according to patient size and/or use of iterative reconstruction technique. FINDINGS: CTA CHEST: MEDIASTINUM: The heart size is normal. No pericardial effusion. The aorta demonstrates normal course and caliber. There are no pathologically enlarged intrathoracic or axillary lymph nodes. LUNGS/PLEURA: The central airways are patent. The lungs are clear. No pulmonary edema or pneumothorax . No noncalcified pulmonary nodule. No lung cavitation noted. CTA ABDOMEN: The aorta demonstrates normal course and caliber without aneurysm or dissection. Organs: The liver, spleen, pancreas, and adrenal glands are normal. The gallbladder has been resected . The kidneys are intact. GI/bowel: Nonspecific mildly dilated loops of small bowel within the upper, mid, and lower abdomen me asuring up to 3.1 cm. No transition point is appreciated. Findings may reflect mild ileus. No wall thickening or definitive inflammatory bowel wall thickening. The appendix is normal. Pelvis: The bladder is normal. The rectum is normal. No pelvic free fluid. No pelvic lymphadenopathy. Peritoneum/retroperitoneum: No free fluid. No free air. No mesenteric or retroperitoneal lymphadenopa thy. Bones/soft tissues: There are no suspicious-appearing lytic or blastic osseous lesions. CTA PELVIS: The iliac arteries demonstrate normal course and caliber without aneurysm or dissection. The bladder is normal. The rectum is normal. No pelvic free fluid. No pelvic lymphadenopathy. IMPRESSION: 1. No aortic dissection or aneurysm. 2. Nonspecific mildly dilated loops of small bowel without transition point. Findings may reflect m ild ileus. 3. Cholecystectomy. RECOMMENDATIONS: Electronically signed by: Salvador Jaquez MD 02/24/2025 05:32 AM CDT Due to temporary technical issues with the PACS/[employer] reporting system, reports are being dagoberto d by the in-house radiologist without review as a courtesy to ensure prompt reporting the interpreting radiologist is fully responsible for the content of the report. Transcribed Date/Time: 02/24/2025 5:39 AM
--- NOTE | 2025-02-24 05:56 | RAD REPORT ---
EXAM: XR Chest, 1 View CLINICAL HISTORY: The patient is 64 years old and is Female; epigastric pain, vomiting TECHNIQUE: Frontal view of the chest. COMPARISON: No relevant prior studies available. FINDINGS: LUNGS: The lungs are hyperinflated. There is no lobar consolidation. PLEURAL SPACE: Unremarkable. No pneumothorax. HEART: Unremarkable. No cardiomegaly. MEDIASTINUM: Unremarkable. Normal mediastinal contour. BONES/JOINTS: Unremarkable. No acute fracture. SOFT TISSUES: Bilateral breast implants are present. UPPER ABDOMEN: Unremarkable as visualized. IMPRESSION: No acute cardiopulmonary process. Electronically signed by: Martha Parker MD 02/24/2025 01:43 AM CDT RP Due to temporary technical issues with the PACS/[employer] reporting system, reports are being dagoberto d by the in-house radiologist without review as a courtesy to ensure prompt reporting the interpreting radiologist is fully responsible for the content of the report. Transcribed Date/Time: 02/24/2025 5:56 AM
[2025-02-24] MEDS ORDERED: FENTANYL CITR 100 MCG/2 ML ONE (06:20)
[2025-02-24] MEDS ORDERED: NA CHLORIDE 0.9% 1,000 ML ONE ×2 (06:21→15:18)
[2025-02-24] MEDS ORDERED: NA CHLORIDE 0.9% 50 ML ONE (06:22)
--- NOTE | 2025-02-24 06:23 | ER ---
Nurse's Notes [facility] Name: Sierra Powers Age: 64 yrs Sex: Female : 1960 Arrival Date: 02/23/2025 Time: 23:54 Bed 5 Private MD: Diagnosis: Acute ileus, intractable vomiting, Intractable abdominal pain Presentation: 02/24 00:15 Chief complaint: Patient states: DECREASED APPETITE FOR 3 WEEKS....NAUSEA/VOMITING WITH br2 EPIGASTRIC PAIN THAT RADIATES TO BACK. Coronavirus screen: Client denies travel out of the [place] in the last 14 days. Ebola Screen: Patient denies exposure to infectious person. Initial Sepsis Screen: Does the patient meet any 2 criteria? No. Patient's initial sepsis screen is negative. Does the patient have a suspected source of infection? No. Patient's initial sepsis screen is negative. Risk Assessment: Do you want to hurt yourself or someone else? Patient reports no desire to harm self or others. Onset of symptoms was February 23, 2025 at 15:00. 00:15 Method Of Arrival: Ambulatory br2 00:15 Acuity: JENNY 3 br2 Triage Assessment: 00:18 General: Appears comfortable, slender, Behavior is calm, cooperative. Pain: Complains br2 of pain in epigastric area Pain radiates to lumbar area, left mid back and right mid back. GI: Reports epigastric pain, nausea, vomiting. Historical: - Allergies: 00:18 No Known Allergies; br2 - Home Meds: 07:00 None [Active]; aa5 - PMHx: 07:00 None; aa5 - PSHx: 00:18 Cholecystectomy; br2 - Immunization history:: Adult Immunizations up to date. - Infectious Disease History:: Denies. - Social history:: Smoking status: Patient denies any tobacco usage or history of. Patient/guardian denies using alcohol, street drugs. Screenin:43 [facility] ED Fall Risk Assessment (Adult) History of falling in the last 3 months, vc1 including since admission No falls in past 3 months (0 pts) Confusion or Disorientation No (0 pts) Intoxicated or Sedated No (0 pts) Impaired Gait No (0 pts) Mobility Assist Device Used No (0 pt) Altered Elimination No (0 pt) Score/Fall Risk Level 0 - 2 = Low Risk Oriented to surroundings, Maintained a safe environment, Educated pt \T\ family on fall prevention, incl call for assistance when getting out of bed, Hourly rounding (assess needs \T\ fall precautionary measures) done. Abuse screen: Denies threats or abuse. Nutritional screening: No deficits noted. Tuberculosis screening: No symptoms or risk factors identified. Assessment: 00:45 General: Appears in no apparent distress. uncomfortable, Behavior is calm, cooperative. al5 Pain: Complains of pain in back and abdomen and epigastric area. Neuro: Level of Consciousness is awake, alert, obeys commands, Oriented to person, place, time, situation. Cardiovascular: Capillary refill < 3 seconds Patient's skin is warm and dry. Respiratory: Airway is patent Respiratory effort is even, unlabored, Respiratory pattern is regular, symmetrical. GI: Abdomen is flat, non-distended, Reports upper abdominal pain, nausea, vomiting. : No signs and/or symptoms were reported regarding the genitourinary system. EENT: No signs and/or symptoms were reported regarding the EENT system. Derm: Skin is intact, is healthy with good turgor, Skin is pink, warm \T\ dry. normal. Musculoskeletal: No signs and/or symptoms reported regarding the musculoskeletal system. 01:52 Reassessment: Patient appears in no apparent distress at this time. No changes from al5 previously documented assessment. Patient and/or family updated on plan of care and expected duration. Pain level reassessed. Patient is alert, oriented x 3, equal unlabored respirations, skin warm/dry/pink. 03:03 Reassessment: Patient appears in no apparent distress at this time. No changes from al5 previously documented assessment. Patient and/or family updated on plan of care and expected duration. Pain level reassessed. Patient is alert, oriented x 3, equal unlabored respirations, skin warm/dry/pink. 04:22 Reassessment: Patient appears in no apparent distress at this time. No changes from al5 previously documented assessment. Patient and/or family updated on plan of care and expected duration. Pain level reassessed. Patient is alert, oriented x 3, equal unlabored respirations, skin warm/dry/pink. Vital Signs: 00:15 BP 135 / 83; Pulse 111; Resp 18; Temp 97.3; Pulse Ox 100% on R/A; Weight 49.9 kg; br2 Height 5 ft. 1 in. ; Pain 9/10; 00:45 BP 130 / 52; Pulse 98; Resp 18; Pulse Ox 99% on R/A; al5 01:44 BP 130 / 40; Pulse 116; Resp 15; Pulse Ox 100% on R/A; al5 03:00 BP 113 / 59; Pulse 108; Resp 18; Pulse Ox 99% ; al5 04:00 BP 119 / 42; Pulse 102; Resp 20; Pulse Ox 99% on R/A; al5 05:13 BP 115 / 46; Pulse 99; Resp 17; Pulse Ox 100% on R/A; kd3 06:11 BP 122 / 53; Pulse 99; Resp 17; Pulse Ox 100% on R/A; kd3 00:15 Body Mass Index 20.78 (49.90 kg, 154.94 cm) br2 00:15 Pain Scale: Adult br2 ED Course: 02/23 23:57 Patient arrived in ED. im 02/24 00:00 David Linares PA is PHCP. cp 00:01 Salvatore Davenport MD is Attending Physician. cp 00:18 Triage completed. br2 00:18 Arm band placed on. br2 00:33 Abby Aviles, RN is Primary Nurse. al5 00:38 Inserted saline lock: 20 gauge in right antecubital area, using aseptic technique. vc1 Blood collected. Flushed with 10 mL NS. 00:38 Initial lab(s) drawn, by mt, sent to lab. Urine collected: EKG done, by industrial machine system technician. oe reviewed by Salvatore Davenport MD. 00:43 Patient has correct armband on for positive identification. Bed in low position. Call vc1 light in reach. Placed in gown. fire hydrant operator on. Pulse ox on. NIBP on. 00:44 Basic Metabolic Panel Sent. vc1 00:44 CBC with Diff Sent. vc1 00:44 LFT's Sent. vc1 00:44 Magnesium Sent. vc1 00:44 PT-INR Sent. vc1 00:44 Troponin HS Sent. vc1 01:00 Provided Education on: plan of care. al5 01:11 XRAY Chest (1 view) In Process Unspecified. EDMS 01:51 No provider procedures requiring assistance completed. al5 02:44 CT Aorta for Dissection In Process Unspecified. EDMS 06:22 Geo Lopez is Hospitalizing Provider. sp4 07:00 Patient admitted, IV remains in place. aa5 Administered Medications: 00:49 Drug: metoCLOPramide IVP 10 mg IVP once; over 1 to 2 minutes Route: IVP; Site: right al5 antecubital; 03:51 Follow up: Response: No adverse reaction; No change in condition al5 00:49 Drug: Famotidine IVP 20 mg IVP once; dilute with 10 mL 0.9% NaCl; give over 2 minutes al5 Route: IVP; Site: right antecubital; 03:50 Follow up: Response: No adverse reaction al5 00:49 Drug: morphine IVP or IV 2 mg IVP once over 4 mins Route: IVP; Infused Over: 4 mins; al5 Site: right antecubital; 03:50 Follow up: Response: No adverse reaction; Pain is decreased al5 01:46 Drug: NS 0.9% IV 500 ml 500 ml IV at 1 bolus once; to be given as a bolus over 30 al5 minutes Volume: 500 ml; Route: IV; Rate: 1 bolus; Site: right antecubital; 03:50 Follow up: Response: No adverse reaction; IV Status: Completed infusion; IV Intake: al5 500ml 02:18 Drug: Ondansetron IVP 4 mg IVP once; over 2 minutes Route: IVP; Site: right antecubital;al5 03:49 Follow up: Response: No adverse reaction; No change in condition al5 03:30 Drug: Ondansetron IVP 4 mg IVP once; over 2 minutes Route: IVP; Site: right antecubital;al5 03:50 Follow up: Response: No adverse reaction; No change in condition al5 04:10 Drug: Promethazine IM 50 mg IM once Route: IM; Site: left gluteus; al5 05:39 Follow up: Response: No adverse reaction al5 06:29 Drug: NS 0.9% IV 1000 ml IV at 125 ml/hr Per protocol; to be given as a bolus over 60 kd3 minutes Route: IV; Rate: 125 ml/hr; Site: right antecubital; 06:29 Drug: fentaNYL (PF) IVP 50 mcg IVP once Route: IVP; Site: right antecubital; kd3 06:29 Drug: metoCLOPramide IVP 10 mg IVP once; over 1 to 2 minutes Route: IVP; Site: right kd3 antecubital; Medication: 00:43 VIS not applicable for this client. vc1 Intake: 03:50 IV: 500ml; Total: 500ml. al5 Outcome: 06:23 Decision to Hospitalize by Provider. sp4 07:00 Admitted to ER Hold. Please see [facility] for further documentation. aa5 07:00 Condition: stable 07:00 Instructed on the need for admit, 19:09 Patient left the ED. aa5 Signatures: Dispatcher [employer] EDMS Glenny Okeefe, RN RN aa5 David Linares PA PA cp Espinosa, Orlando oe Doucette, Kyli, RN RN kd3 Leyla Solis RN RN vc1 Salvatore Davenport MD MD sp4 Dona Escamilla Amanda, RN RN al5 Maddy Burrell RN RN br2 Corrections: (The following items were deleted from the chart) 00:48 00:38 Initial lab(s) drawn, by me, sent to lab. Urine collected: EKG done, by industrial machine system technician. oe reviewed by Salvatore Davenport MD vc1 03:50 03:50 Ondansetron IVP 4 mg IVP in right antecubital al5 al5
--- NOTE | 2025-02-24 06:23 | EDPHYS ---
Physician Documentation [facility] Name: Sierra Powers Age: 64 yrs Sex: Female : 1960 Arrival Date: 02/23/2025 Time: 23:54 Bed 5 Private MD: ED Physician Salvatore Davenport HPI: 02/24 00:33 This 64 yrs old Female presents to ER via Ambulatory with complaints of cp Nausea/Vomiting, Epigastric Pain, Decreased Appetite, Dizziness. 00:33 The patient presents to the emergency department with nausea, with "dry heaves", cp vomiting, that is continuous. Onset: The symptoms/episode began/occurred yesterday. 00:33 Possible causes: unknown. cp 00:33 Associated signs and symptoms: Pertinent positives: abdominal pain, anorexia, Pertinent cp negatives: constipation, diarrhea, fever, GI bleeding, vomiting blood. Severity of symptoms: in the emergency department the symptoms are unchanged despite home interventions. The patient has not experienced similar symptoms in the past. Historical: - Allergies: 00:18 No Known Allergies; br2 - Home Meds: 07:00 None [Active]; aa5 - PMHx: 07:00 None; aa5 - PSHx: 00:18 Cholecystectomy; br2 - Immunization history:: Adult Immunizations up to date. - Infectious Disease History:: Denies. - Social history:: Smoking status: Patient denies any tobacco usage or history of. Patient/guardian denies using alcohol, street drugs. ROS: 00:35 Constitutional: Positive for poor PO intake, Negative for chills, fever, cp 00:35 Eyes: Negative for injury, pain, redness, and discharge, cp 00:35 ENT: Negative for drainage from ear(s), ear pain, difficulty swallowing, difficulty handling secretions, 00:35 Cardiovascular: Positive for chest pain, 00:35 Respiratory: Negative for cough, shortness of breath, wheezing, 00:35 Abdomen/GI: Positive for abdominal pain, nausea and vomiting, anorexia, of the epigastric area, Negative for diarrhea, constipation, hematemesis, 00:35 Back: Positive for radiated pain, 00:35 Neuro: Negative for altered mental status, dizziness, headache, numbness, syncope, near syncope, weakness, 00:35 All other systems are negative, Exam: 00:40 Constitutional: The patient appears in no acute distress, alert, awake, cp non-diaphoretic, non-toxic, well developed, well nourished, uncomfortable, 00:40 Head/Face: Normocephalic, atraumatic. cp 00:40 Eyes: Periorbital structures: appear normal, Conjunctiva: normal, no exudate, no injection, Sclera: no appreciated abnormality, Lids and lashes: appear normal, bilaterally, 00:40 ENT: External ear(s): are unremarkable, Nose: is normal, Mouth: Lips: moist, Oral mucosa: moist, Posterior pharynx: Airway: no evidence of obstruction, patent, erythema, is not appreciated, exudate, is not appreciated, 00:40 Chest/axilla: Inspection: normal, 00:40 Cardiovascular: Rate: tachycardic, Rhythm: regular, Edema: is not appreciated, JVD: is not appreciated, 00:40 Respiratory: the patient does not display signs of respiratory distress, Respirations: normal, no use of accessory muscles, no retractions, Breath sounds: are clear throughout, no decreased breath sounds, no stridor, no wheezing, 00:40 Abdomen/GI: Inspection: abdomen appears normal, Bowel sounds: active, all quadrants, Palpation: soft, in all quadrants, moderate abdominal tenderness, in the epigastric area, rebound tenderness, is not appreciated, involuntary guarding, is not appreciated, 00:40 Back: CVA tenderness, is absent, 00:40 Neuro: Orientation: to person, place \\T\\ time. Mentation: is normal, Motor: moves all fours, strength is normal, Sensation: is normal, 00:45 ECG was reviewed by the Attending Physician. cp Vital Signs: 00:15 BP 135 / 83; Pulse 111; Resp 18; Temp 97.3; Pulse Ox 100% on R/A; Weight 49.9 kg; br2 Height 5 ft. 1 in. ; Pain 9/10; 00:45 BP 130 / 52; Pulse 98; Resp 18; Pulse Ox 99% on R/A; al5 01:44 BP 130 / 40; Pulse 116; Resp 15; Pulse Ox 100% on R/A; al5 03:00 BP 113 / 59; Pulse 108; Resp 18; Pulse Ox 99% ; al5 04:00 BP 119 / 42; Pulse 102; Resp 20; Pulse Ox 99% on R/A; al5 05:13 BP 115 / 46; Pulse 99; Resp 17; Pulse Ox 100% on R/A; kd3 06:11 BP 122 / 53; Pulse 99; Resp 17; Pulse Ox 100% on R/A; kd3 00:15 Body Mass Index 20.78 (49.90 kg, 154.94 cm) br2 00:15 Pain Scale: Adult br2 MDM: 00:27 Medical Screening Exam initiated cp 01:00 Differential diagnosis: gastritis, cholecystitis, pancreatitis, appendicitis, viral cp gastroenteritis, gastroenteritis, AAA, aortic dissection, acute ID. 04:39 ED course: EXAM: XR Chest, 1 View CLINICAL HISTORY: The patient is 64 years old and is sp4 Female; epigastric pain, vomiting TECHNIQUE: Frontal view of the chest. COMPARISON: No relevant prior studies available. FINDINGS: LUNGS: The lungs are hyperinflated. There is no lobar consolidation. PLEURAL SPACE: Unremarkable. No pneumothorax. HEART: Unremarkable. No cardiomegaly. MEDIASTINUM: Unremarkable. Normal mediastinal contour. BONES/JOINTS: Unremarkable. No acute fracture. SOFT TISSUES: Bilateral breast implants are present. UPPER ABDOMEN: Unremarkable as visualized. IMPRESSION: No acute cardiopulmonary process. . 05:48 ED course: FINDINGS: CTA CHEST: MEDIASTINUM: The heart size is normal. No pericardial sp4 effusion. The aorta demonstrates normal course and caliber. There are no pathologically enlarged intrathoracic or axillary lymph nodes. LUNGS/PLEURA: The central airways are patent. The lungs are clear. No pulmonary edema or pneumothorax. No noncalcified pulmonary nodule. No lung cavitation noted. CTA ABDOMEN: The aorta demonstrates normal course and caliber without aneurysm or dissection. Organs: The liver, spleen, pancreas, and adrenal glands are normal. The gallbladder has been resected. The kidneys are intact. GI/bowel: Nonspecific mildly dilated loops of small bowel within the upper, mid, and lower abdomen measuring up to 3.1 cm. No transition point is appreciated. Findings may reflect mild ileus. No wall thickening or definitive inflammatory bowel wall thickening. The appendix is normal. Pelvis: The bladder is normal. The rectum is normal. No pelvic free fluid. No pelvic lymphadenopathy. Peritoneum/retroperitoneum: No free fluid. No free air. No mesenteric or retroperitoneal lymphadenopathy. Bones/soft tissues: There are no suspicious-appearing lytic or blastic osseous lesions. CTA PELVIS: The iliac arteries demonstrate normal course and caliber without aneurysm or dissection. The bladder is normal. The rectum is normal. No pelvic free fluid. No pelvic lymphadenopathy. Final Radiology Report 1. No aortic dissection or aneurysm. 2. Nonspecific mildly dilated loops of small bowel without transition point. Findings may reflect mild ileus. 3. Cholecystectomy. . 06:23 Data reviewed: vital signs, nurses notes, lab test result(s), radiologic studies, CT sp4 scan. Consideration of Admission/Observation Patient was admitted/placed on observation. Escalation of care including admission/observation considered. Management of patient was discussed with the following: Hospitalist: Admit team. 02/24 00:29 Order name: Basic Metabolic Panel; Complete Time: 03:49 cp 02/24 01:20 Interpretation: Normal except: GLUC 165; CA 10.4. cp 02/24 00:29 Order name: CBC with Diff; Complete Time: 01:20 cp 02/24 01:20 Interpretation: Normal except: PLT 441; JOLENE% 78.5; LYM% 15.0. cp 02/24 00:29 Order name: LFT's; Complete Time: 03:49 cp 02/24 01:21 Interpretation: Normal except: AST 40; ALK 133; ALB 3.3; GLOB 4.6; A/G 0.7. cp 02/24 00:29 Order name: Magnesium; Complete Time: 03:49 cp 02/24 00:29 Order name: PT-INR; Complete Time: 01:20 cp 02/24 00:29 Order name: Troponin HS; Complete Time: 03:49 cp 02/24 00:32 Order name: UAM; Complete Time: 01:20 kd3 02/24 01:21 Interpretation: Normal except: [facility] Extremely Turbid; UBLD 2+; UPROT 1+; UESTR 75; URBC cp >50; DAYANA Cx 4+. 02/24 02:58 Order name: Lipase; Complete Time: 03:49 EDMS 02/24 06:43 Order name: Basic Metabolic Panel EDSC 02/24 06:43 Order name: Basic Metabolic Panel EDSC 02/24 06:43 Order name: Basic Metabolic Panel EDSC 02/24 06:43 Order name: Basic Metabolic Panel EDSC 02/24 06:43 Order name: Basic Metabolic Panel EDSC 02/24 06:43 Order name: CBC with Automated Diff EDMS 02/24 06:43 Order name: CBC with Automated Diff EDMS 02/24 06:43 Order name: CBC with Automated Diff EDMS 02/24 06:43 Order name: CBC with Automated Diff EDMS 02/24 06:43 Order name: CBC with Automated Diff EDMS 02/24 00:29 Order name: XRAY Chest (1 view) cp 02/24 01:24 Order name: CT Aorta for Dissection cp 02/24 06:43 Order name: Abdomen 1 View (KUB) EDMS 02/24 06:43 Order name: Abdomen 1 View (KUB) EDMS 02/24 00:29 Order name: EKG; Complete Time: 00:29 cp 02/24 00:29 Order name: Cardiac monitoring; Complete Time: 00:33 cp 02/24 00:29 Order name: EKG - Nurse/Tech; Complete Time: 00:33 cp 02/24 00:29 Order name: IV Saline Lock; Complete Time: 00:43 cp 02/24 00:29 Order name: Labs collected and sent; Complete Time: 00:44 cp 02/24 00:29 Order name: O2 Per Protocol; Complete Time: 00:33 cp 02/24 00:29 Order name: O2 Sat Monitoring; Complete Time: 00:33 cp EC:45 Rate is 105 beats/min. Rhythm is regular. SD interval is normal. QRS interval is cp normal. QT interval is normal. T waves are Inverted in lead aVR. Interpreted by me. Reviewed by me. Administered Medications: 00:49 Drug: metoCLOPramide IVP 10 mg IVP once; over 1 to 2 minutes Route: IVP; Site: right al5 antecubital; 03:51 Follow up: Response: No adverse reaction; No change in condition al5 00:49 Drug: Famotidine IVP 20 mg IVP once; dilute with 10 mL 0.9% NaCl; give over 2 minutes al5 Route: IVP; Site: right antecubital; 03:50 Follow up: Response: No adverse reaction al5 00:49 Drug: morphine IVP or IV 2 mg IVP once over 4 mins Route: IVP; Infused Over: 4 mins; al5 Site: right antecubital; 03:50 Follow up: Response: No adverse reaction; Pain is decreased al5 01:46 Drug: NS 0.9% IV 500 ml 500 ml IV at 1 bolus once; to be given as a bolus over 30 al5 minutes Volume: 500 ml; Route: IV; Rate: 1 bolus; Site: right antecubital; 03:50 Follow up: Response: No adverse reaction; IV Status: Completed infusion; IV Intake: al5 500ml 02:18 Drug: Ondansetron IVP 4 mg IVP once; over 2 minutes Route: IVP; Site: right antecubital;al5 03:49 Follow up: Response: No adverse reaction; No change in condition al5 03:30 Drug: Ondansetron IVP 4 mg IVP once; over 2 minutes Route: IVP; Site: right antecubital;al5 03:50 Follow up: Response: No adverse reaction; No change in condition al5 04:10 Drug: Promethazine IM 50 mg IM once Route: IM; Site: left gluteus; al5 05:39 Follow up: Response: No adverse reaction al5 06:29 Drug: NS 0.9% IV 1000 ml IV at 125 ml/hr Per protocol; to be given as a bolus over 60 kd3 minutes Route: IV; Rate: 125 ml/hr; Site: right antecubital; 06:29 Drug: fentaNYL (PF) IVP 50 mcg IVP once Route: IVP; Site: right antecubital; kd3 06:29 Drug: metoCLOPramide IVP 10 mg IVP once; over 1 to 2 minutes Route: IVP; Site: right kd3 antecubital; Disposition: 06:22 Co-signature as Attending Physician, Salvatore Davenport MD I agree with the assessment sp4 and plan of care. I reviewed the patient's care provided by Advanced Practice Provider \\T\\ agree w/ the diagnosis \\T\\ care plan. I personally saw the pt \\T\\ performed a substantive portion of the visit, incldng all aspects of the (History/Exam/Medical Decision Making). Disposition Summary: 02/24/25 06:23 Hospitalization Ordered Notes: Hospitalization Status: Inpatient Admission sp4 Provider: Geo Lopez sp4 Condition: Fair sp4 Problem: new sp4 Symptoms: are unchanged sp4 Bed/Room Type: Standard sp4 Location: Telemetry/MedSurg (Inpatient)(02/24/25 18:33) em1 Room Assignment: 205(02/24/25 18:33) em1 Diagnosis - Acute ileus, intractable vomiting, Intractable abdominal pain sp4 Forms: - Medication Reconciliation Form sp4 - SBAR form sp4 - Leadership Thank You Letter sp4 Signatures: Dispatcher [employer] EDMS Ricardo Lynn em1 Glenny Okeefe, RN RN aa5 David Linares PA PA cp Doucette, Kyli, RN RN kd3 Leyal Solis RN RN vc1 Salvatore Davenport MD MD sp4 Abby Aviles RN RN al5 Maddy Burrell, RN RN br2 Corrections: (The following items were deleted from the chart) 00:29 00:29 BASIC METABOLIC PANEL+C.LAB.BRZ ordered. EDMS EDMS 00:29 00:29 CBC+H.LAB.BRZ ordered. EDMS EDMS 00:29 00:29 HEPATIC FUNCTION+C.LAB.BRZ ordered. EDMS EDMS 00:29 00:29 MAGNESIUM+C.LAB.BRZ ordered. EDMS EDMS 00:29 00:29 PROTIME (+INR)+COAG.LAB.BRZ ordered. EDMS EDMS 00:29 00:29 Troponin High Sensitivity+C.LAB.BRZ ordered. EDMS EDMS 02:57 01:24 LIPASE+C.LAB.BRZ ordered. EDMS EDMS 06:33 06:23 Telemetry/MedSurg (Inpatient) sp4 vc1 06:33 06:23 sp4 vc1 18:33 06:33 [facility] ER HOLD vc1 em1 18:33 06:33 ERHOLD- vc1 em1
[2025-02-24] MEDS ORDERED: MORPHINE 2 MG/ML SYR IV PRN (06:38)
[2025-02-24] MEDS: NA CHLORIDE 0.9% 1,000 ML IV SCH (07:00)
[2025-02-24] MEDS ORDERED: ENOXAPARIN 40 MG/0.4 ML SQ ONE (07:50)
[2025-02-24] MEDS: ONDANSETRON 4 MG/2 ML VIAL IV PRN (08:35)
--- NOTE | 2025-02-24 08:54 | P.HP ---
Certification for Inpatient Patient admitted to: Inpatient With expected LOS: >2 Midnights Patient will require the following post-hospital care: None Practitioner: I am a practitioner with admitting privileges, knowledge of patient current condition, hospital course, and medical plan of care. Services: Services provided to patient in accordance with Admission requirements found in Title 42 Section 412.3 of the Code of Federal Regulations Patient History Date of Service: 02/24/25 Reason for admission: Ileus History of Present Illness: 64-year-old female with no reported past medical history presented to the emergency department with chief complaint of nausea, vomiting, abd pain/back pain since yesterday. Patient was evaluated in the emergency department her labs were significant for glucose of 165 AST 40 alk phos 133 UA with 75 leuk esterase, red blood cells, blood. CT of the chest abdomen pelvis with IV contrast was performed which showed a suspected ileus. Patient still with nausea, will be admitted for ileus, nausea and vomiting. Allergies No Known Allergies Allergy (Unverified 02/24/25 06:51) - Past Medical/Surgical History -: None -: Cholecystectomy Psychosocial/ Personal History: Lives at home with family - Social History Alcohol use: No CD- Drugs: No Caffeine use: Yes Place of Residence: Home Review of Systems 10-point ROS is otherwise unremarkable Gastrointestinal: Nausea, Vomiting, Abdominal Pain Physical Examination - Physical Exam General: Alert, In no apparent distress, Oriented x3 HEENT: Atraumatic, PERRLA, EOMI Neck: Supple, 2+ carotid pulse no bruit, No LAD Respiratory: Clear to auscultation bilaterally, Normal air movement Cardiovascular: Regular rate/rhythm, Normal S1 S2 Gastrointestinal: Normal bowel sounds, Tenderness (Mild generalized abdominal tenderness) Musculoskeletal: No tenderness Integumentary: No rashes Neurological: Normal gait, Normal speech, Normal strength at 5/5 x4 extr, Normal affect - Studies Laboratory Data (last 24 hrs) 02/24/25 02/24/25 02/24/25 01:24 00:28 00:28 WBC 7.70 Hgb 13.0 Hct 39.1 Plt Count 441 H PT 12.0 INR 1.06 Sodium Potassium BUN Creatinine Glucose Magnesium Total Bilirubin AST ALT Alkaline Phosphatase Lipase Cancelled 02/24/25 00:28 WBC Hgb Hct Plt Count PT INR Sodium 137 Potassium 4.7 BUN 18 Creatinine 0.65 Glucose 165 H Magnesium 2.1 Total Bilirubin 0.5 AST 40 H ALT 41 Alkaline Phosphatase 133 H Lipase 29 Assessment and Plan - Plan Assessment: Nausea/vomiting/diarrhea Ileus Plan: Nausea/vomiting/diarrhea Ileus N.p.o. aside from ice chips and sips of water As needed pain medications and antiemetics Encourage ambulation Slowly advance diet as tolerated No fevers or leukocytosis we will hold off on empiric antibiotics at this time If there is worsening consider reimaging/surgical consultation Serial abdominal exams DVT PPX: Lovenox Code status: Full Discharge Plan: Home Plan to discharge in: 48 Hours - Advance Directives Does patient have a Living Will: No Does patient have a Durable POA for Healthcare: No - Code Status/Comfort Care Code Status Assessed: Yes (Full code) Critical Care: No Time Spent Managing Pts Care (In Minutes): 62
[2025-02-24] MEDS: ENOXAPARIN 40 MG/0.4 ML SQ SCH (09:00)
[2025-02-24] MEDS ORDERED: ACETAMINOPHEN 325 MG TABLET ONE (12:15)
[2025-02-24] MEDS: ACETAMINOPHEN 325 MG TABLET PO PRN (12:19)
[2025-02-24] MEDS: METRONIDAZOLE 500mg IVPB 500 MG/100 ML BAG IV ONE (12:36)
[2025-02-24] MEDS ORDERED: CEFTRIAXONE 1000 MG/VIAL ONE (13:35)
[2025-02-24] MEDS ORDERED: NA CHLORIDE 0.9% 100 ML ONE (13:35)
[2025-02-24] MEDS ORDERED: METRONIDAZOLE 500mg IVPB 500 MG/100 ML BAG IV ONE ×2 (13:35→16:49)
[2025-02-24] MEDS: CEFTRIAXONE 1,000 MG in NA CHLORIDE 0.9% 50 ML IVPB ONE (13:40)
[2025-02-24] MEDS: METRONIDAZOLE 500mg IVPB 500 MG/100 ML BAG IV SCH (16:55)
[2025-02-25 04:50] LABS: Absolute Monocytes 0.8 K/uL (0.1-1.3); Absolute Neutrophil 6.6 K/uL (1.8-8.0); Basophils % 0.1 % (0-1.3); Eosinophils % 0.2 % (0-4.4); Hematocrit 30.6 % (36.0-45.0); Hemoglobin 10.3 g/dL (12.0-15.0); MCH 28.7 pg (27.0-35.0); MCHC 33.5 g/dL (32.0-36.0); MCV 85.7 fL (80-100); MPV 8.3 fL (7.6-11.3); Monocytes % 8.5 % (3.3-12.3); Neutrophils % 70.2 % (41.7-73.7); Platelets 312 thou/uL (152-406); RBC Red Blood Cell Count 3.57 M/uL (3.86-4.86); Red Cell Distribution Width 13.2 % (12.1-15.2)
[2025-02-25 05:10] LABS: Anion Gap 13.1 mEq/L (5.0-15.0); Potassium 3.1 mEq/L (3.5-5.1)
--- NOTE | 2025-02-25 08:29 | RAD REPORT ---
EXAM: XR Abdomen 1 View (KUB) HISTORY: [facility] MAIN eval bowel gas pattern COMPARISON: CTA abdomen and pelvis of the previous day FINDINGS: Single view of the abdomen shows a nonspecific, mild prominence of small bowel caliber, rj ng the central and left hemiabdomen. Appearance appears partially improved since prior CT allowing for differences in technique. No suspicious calcifications are seen. The bones are unremarkable. IMPRESSION: Apparent partial improvement of the degree of small bowel prominence, may suggest improvi ng ileus.
[2025-02-25] MEDS: CEFTRIAXONE 1,000 MG in NA CHLORIDE 0.9% 50 ML IVPB SCH (08:51)
[2025-02-25] MEDS: KCL 20 MEQ/100 mL IVPB 20 MEQ/100 ML BAG IV SCH (08:52)
[2025-02-25] MEDS ORDERED: POTASSIUM CL 40 MEQ in NA CHLORIDE 0.9% 500 ML IV SCH (09:00)
[2025-02-25 10:23] VITALS: BMI 20.7
[2025-02-25] MEDS: SODIUM CHLORIDE 0.9% 10ML INJ IV ONE (11:00)
[2025-02-25] MEDS: PANTOPRAZOLE 40 MG INJ IVP ONE (11:28)
--- NOTE | 2025-02-25 13:38 | P.PN ---
Date of Service: 02/25/25 Subjective: Nausea and abdominal pain have improved overnight Bowel movement this morning ROS: 10 point ROS as noted above, otherwise negative Physical exam GEN: Alert, oriented, NAD HEENT: Normal conjunctiva, sclera anicteric CV: Regular rate and rhythm, no edema Pulm: Nonlabored respirations on room air ABD: Soft, Mild generalized abd tenderness, nondistended MSK: No joint tenderness Integumentary: No rashes Neuro: Normal speech, normal affect Vitals reviewed Assessment: Nausea/vomiting/diarrhea Ileus Plan: Nausea/vomiting/diarrhea Ileus Liquid diet, slowly advance as tolerated Had some temperatures in the 99 range as well as tachycardia yesterday Started on antibiotics with Rocephin/Flagyl As needed pain medications and antiemetics Encourage ambulation Serial abdominal exams DVT PPX: SCD Code status: Full Discharge Plan: Home Plan to discharge in: 48 Hours Time Spent Managing Pts Care (In Minutes): 35
[2025-02-26 04:51] LABS: Absolute Eosinophils 0.1 K/uL (0-0.5); Absolute Lymphocytes (CBC) 1.3 K/uL (0.7-4.9); Absolute Monocytes 0.5 K/uL (0.1-1.3); Absolute Neutrophil 2.2 K/uL (1.8-8.0); Basophils % 0.5 % (0-1.3); Eosinophils % 1.3 % (0-4.4); Hematocrit 28.9 % (36.0-45.0); Hemoglobin 9.9 g/dL (12.0-15.0); Lymphocytes % 31.7 % (15.3-44.8); MCH 28.7 pg (27.0-35.0); MCHC 34.2 g/dL (32.0-36.0); MCV 84.1 fL (80-100); Monocytes % 13.3 % (3.3-12.3); Neutrophils % 53.2 % (41.7-73.7); Nucleated Red Blood Cells % 0.1 % (0-0); Platelets 296 thou/uL (152-406); RBC Red Blood Cell Count 3.43 M/uL (3.86-4.86); Red Cell Distribution Width 12.9 % (12.1-15.2)
[2025-02-26 05:08] LABS: Anion Gap 8.3 mEq/L (5.0-15.0); Potassium 3.3 mEq/L (3.5-5.1)
[2025-02-26] MEDS: KCL 20 MEQ/100 mL IVPB 20 MEQ/100 ML BAG IV SCH (06:02)
--- NOTE | 2025-02-26 09:01 | P.DS ---
Admission Date: 02/24/25 Discharge Date: 02/26/25 Disposition: ROUTINE DISCHARGE Discharge Condition: GOOD Reason for Admission: Ileus Brief History of Present Illness: 64-year-old female with no reported past medical history presented to the emergency department with chief complaint of nausea, vomiting, abd pain/back pain since yesterday. Patient was evaluated in the emergency department her labs were significant for glucose of 165 AST 40 alk phos 133 UA with 75 leuk esterase, red blood cells, blood. CT of the chest abdomen pelvis with IV contrast was performed which showed a suspected ileus. Patient still with nausea, will be admitted for ileus, nausea and vomiting. Hospital Course: Assessment: Nausea/vomiting/diarrhea Ileus Patient was admitted to the hospital for ileus. She was treated with conservative measures including dietary restriction, IV fluids. She did develop a low-grade fever and tachycardia, she was started on antibiotics with Cipro /Flagyl. She is feeling much better today, tolerating a diet, had multiple bowel movements and stable for discharge and outpatient follow-up. Prescriptions for Cipro, Flagyl and as needed Zofran sent to her pharmacy [facility] in [place]. Please follow-up with your primary care doctor 1 to 2 weeks Vital Signs/Physical Exam: Temp Pulse Resp BP Pulse Ox 98.0 F 89 20 125/58 L 97 02/26/25 08:00 02/26/25 08:00 02/26/25 08:00 02/26/25 08:00 02/26/25 08:00 General: Alert, In no apparent distress, Oriented x3 HEENT: Atraumatic Neck: Supple, JVD not distended Respiratory: Clear to auscultation bilaterally, Normal air movement Cardiovascular: Regular rate/rhythm, Normal S1 S2 Gastrointestinal: Normal bowel sounds, No tenderness Musculoskeletal: No tenderness Neurological: Normal speech Laboratory Data at Discharge: WBC 4.10 thou/uL (4.3-10.9) L 02/26/25 04:32 Hgb 9.9 g/dL (12.0-15.0) L 02/26/25 04:32 Hct 28.9 % (36.0-45.0) L 02/26/25 04:32 Plt Count 296 thou/uL (152-406) 02/26/25 04:32 PT 12.0 SECONDS (10-13.0) 02/24/25 00:28 INR 1.06 02/24/25 00:28 Sodium 141 mEq/L (136-145) 02/26/25 04:32 Potassium Cancelled 02/26/25 Unknown BUN 5 mg/dL (7-18) L 02/26/25 04:32 Creatinine 0.29 mg/dL (0.55-1.02) L 02/26/25 04:32 Glucose 100 mg/dL (74-106) 02/26/25 04:32 Magnesium 2.1 mg/dL (1.6-2.4) 02/24/25 00:28 Total Bilirubin 0.5 mg/dL (0.2-1.0) 02/24/25 00:28 AST 40 U/L (15-37) H 02/24/25 00:28 ALT 41 U/L (13-56) 02/24/25 00:28 Alkaline Phosphatase 133 U/L (45-117) H 02/24/25 00:28 Lipase Cancelled 02/24/25 01:24 Home Medications: Ciprofloxacin HCl 500 mg PO BID 5 Days #10 tab 02/26/25 Ondansetron [Zofran] 4 mg PO Q6H PRN #12 tab 02/26/25 metroNIDAZOLE [Flagyl] 500 mg PO Q8H 5 Days #15 tab 02/26/25 New Medications: Ciprofloxacin HCl 500 mg PO BID 5 Days #10 tab metroNIDAZOLE [Flagyl] 500 mg PO Q8H 5 Days #15 tab Ondansetron [Zofran] 4 mg PO Q6H PRN #12 tab PRN Reason: Nausea / Vomiting Physician Discharge Instructions: Patient was admitted to the hospital for ileus. She was treated with conservative measures including dietary restriction, IV fluids. She did develop a low-grade fever and tachycardia, she was started on antibiotics with Cipro/Flagyl. She is feeling much better today, tolerating a diet, had multiple bowel movements and stable for discharge and outpatient follow-up. Prescriptions for Cipro, Flagyl and as needed Zofran sent to her pharmacy [facility] in [place]. Please follow-up with your primary care doctor 1 to 2 weeks Diet: Regular Activity: Ad oleksandr Followup: Alex Espino DO [Primary Care Provider] - 1-2 Weeks Time spent managing pt's care (in minutes): 46
[2025-02-26 10:58] VITALS: O2SAT 97
[2025-02-26 12:03] VITALS: BP 130/61; TEMP 97.8
--- NOTE | 2025-02-26 12:45 | EKG ---
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
== END 2025-02-26 13:03 | disposition home or self-care (01) | DRG 390 ==
LOC: ER 23:54 → ERHOLD 02-24 06:38 → 2ND 02-24 19:00
PROVIDERS: ADMIT Internal Medicine; ATTEND Hospitalist
DX: K56.7 Ileus, unspecified (principal); R00.0 Tachycardia, unspecified; Z90.49 Acquired absence of other specified parts of digestive tract
CPT/HCPCS: 36415; 71045; 71275; 74018; 74175; 80048; 80076; 81001; 83690; 83735; 84132; 84484; 85018; 85025; 85610; 93005; 96361; 96372; 96374; 96375; 99285; J0696; J1650; J2270; J2405; J2470; J2550; J2765; J3010; J3480; J7030; J7040; Q9967